=== PATIENT | male | born 1980 | race Caucasian/White ===

== ENCOUNTER 2016-09-02 10:35 | Emergency (ER) | payer BC ==
[~2016-09-02] VITALS: Ht 182.9 cm; Wt 74.0 kg
[2016-09-02 10:42] VITALS: BP 113/78; PULSE 80; RESP 18; TEMP 97.7; O2SAT 100
[2016-09-02] MEDS ORDERED: PROPARACAINE HCL 0.5% OPHT SOLN 15 ML BTL EACH EYE ONE (11:00)
[2016-09-02] MEDS ORDERED: POLY10O LEFT EYE (11:15)
--- NOTE | 2016-09-02 11:15 | PD ---
HPI Chief Complaint: Eye Problems/Injury Time Seen by Provider: 10:53 Travel History International Travel<30 days: No Contact w/Intl Traveler<30days: No Traveled to known affect area: No History of Present Illness HPI 35-year-old male complains of left eye irritation and foreign body sensation. Patient states that the symptoms started about 3 hours ago. Patient is not sure the type of foreign object according to the left eye. Patient states that he put Visine drops to the left eye without relief. Patient states the pain is irritation pain, foreign body sensation pain. Patient denies any visual change. PFSH Past Medical History Medical History: Denies Significant Hx Diminished Hearing: No Tetanus Vaccination: < 5 Years Influenza Vaccination: No ?: Not Past Surgical History Surgical History: No Previous Surgery Social History Alcohol Use: No Tobacco Use: Yes Substance Use: No Allergies-Medications (Allergen,Severity, Reaction): Coded Allergies: No Known Allergies (Unverified , 09/02/16) Reported Meds & Prescriptions Reported Meds & Active Scripts Active No Active Prescriptions or Reported Medications Review of Systems General / Constitutional: No: Fever Eyes: Positive: Foreign Body Sensation, No: Visual changes HENT: No: Headaches Cardiovascular: No: Chest Pain or Discomfort Respiratory: No: Shortness of Breath Gastrointestinal: No: Abdominal Pain Genitourinary: No: Dysuria Musculoskeletal: No: Pain Skin: No Rash Neurologic: No: Weakness Psychiatric: No: Depression Endocrine: No: Polydipsia Hematologic/Lymphatic: No: Easy Bruising Physical Exam Narrative GENERAL: Well-nourished, well-developed patient. SKIN: Warm and dry. HEAD: Normocephalic. EYES: Left conjunctiva mild erythematous. Left eye stained with fluoresceins stain shows minor uptake lateral aspect the conjunctiva. Upper eyelid was inverted with small uptake the fluorescein stain also. 2 small foreign bodies, whitish in color was removed from left. Left eye was irrigated with saline solution. NECK: Supple, trachea midline. No JVD or lymphadenopathy. CARDIOVASCULAR: Regular rate and rhythm without murmurs, gallops, or rubs. RESPIRATORY: Breath sounds equal bilaterally. No accessory muscle use. GASTROINTESTINAL: Abdomen soft, non-tender, nondistended. MUSCULOSKELETAL: No cyanosis, or edema. BACK: Nontender without obvious deformity. No CVA tenderness. Data Data Last Documented VS Vital Signs Date Time Temp Pulse Resp B/P Pulse Ox O2 Delivery O2 Flow Rate FiO2 09/02/16 10:42 97.7 80 18 113/78 100 Orders Proparacaine 0.5% Opth Soln (Alcaine 0.5 (09/02/16 11:00) MDM Medical Decision Making Medical Screen Exam Complete: Yes Emergency Medical Condition: Yes Differential Diagnosis Differential diagnosis including foreign body, corneal abrasion, corneal ulcer. Narrative Course 35-year-old male with left eye irritation and foreign body sensation. Procedures Procedure Narrative Left eye was stained fluoresceins stain. Patient has minor uptake on the left conjunctiva and underneath the left upper eyelid. 2 foreign bodies were removed with the tip of the Q-tip from left eye. Left eye irrigated with saline solution. Diagnosis Primary Impression: Corneal abrasion, left Qualified Code: S05.02XA - Corneal abrasion, left, initial encounter Additional Impression: Foreign body of left eye Qualified Code: T15.92XA - Foreign body of left eye, initial encounter Additional Instructions: Avoid rubbing the left eye. Polytrim ophthalmic solution as directed. Tylenol or ibuprofen for pain. Follow-up with insurance premium auditor if persistent problem. Return if worse. Med/Other Pt SpecificInfo: Prescription(s) given Scripts Polymyxin B-Trimethoprim Opth Drops (Polytrim Opth Drops)10,000-0.1 Unit/Ml-% Soln1 Drop LEFT EYE QID #1 BOTTLE Ref 0 Prov:Adria Keene MD 09/02/16 Disposition: 01 DISCHARGE HOME Condition: Stable Adria Keene MD Sep 02, 2016 11:15
== END 2016-09-02 11:28 | disposition home or self-care (01) ==
LOC: PHEFT 10:35
DX: T15.02XA Foreign body in cornea, left eye, initial encounter (principal); X58.XXXA Exposure to other specified factors, initial encounter
CPT/HCPCS: 65205